=== PATIENT | female | born 1970 | race Caucasian/White ===

== ENCOUNTER 2017-12-04 21:30 | Emergency (ER) | payer OTHER ==
[~2017-12-04] VITALS: Ht 160 cm; Wt 70.3 kg
[~2017-12-04 21:30] MED LIST: ADIPEX-P37.5 MG
[2017-12-04] MEDS ORDERED: PROTONIX40 MG (21:46)
[2017-12-04] MEDS ORDERED: BUSPIRONE HCL10 MG (21:46)
== END 2017-12-04 22:38 | disposition home or self-care (01) ==
LOC: ER 21:30
DX: R00.2 Palpitations (principal); F41.1 Generalized anxiety disorder